=== PATIENT | male | born 1995 | race Two or more races ===

== ENCOUNTER 2017-09-05 18:13 | Emergency (ER) | payer OTHER ==
[2017-09-05] MEDS ORDERED: NS 1,000 ML IV ONE ×2 (18:51)
[2017-09-05] MEDS ORDERED: ONDANSETRON 4 MG/2 ML VIAL IVP ONE (18:51)
--- NOTE | 2017-09-05 18:53 | EDPHY ---
H & P Stated Complaint: n/v Time Seen by Provider: 09/05/17 18:49 HPI/ROS: CHIEF COMPLAINT: Nausea vomiting HISTORY OF PRESENT ILLNESS: The patient is a 21-year-old man who comes to the emergency department complaining of 2 episodes of vomiting yesterday and 1 this morning. He states that he is now feeling better. No abdominal pain. No diarrhea. No fever. No blood in his vomit. No sick contacts. No significant past medical history. 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 REVIEW OF SYSTEMS: Constitutional: denies: chills, fever, recent illness, recent injury EENTM: denies: blurred vision, double vision, nose congestion Respiratory: denies: cough, shortness of breath Cardiac: denies: chest pain, irregular heart rate, lightheadedness, palpitations Gastrointestinal/Abdominal: See HPI Genitourinary: denies: dysuria, frequency, hematuria, pain Musculoskeletal: denies: joint pain, muscle pain Skin: denies: lesions, rash, jaundice, bruising Neurological: denies: headache, numbness, paresthesia, tingling, dizziness, weakness Hematologic/Lymphatic: denies: blood clots, easy bleeding, easy bruising Immunologic/allergic: denies: HIV/AIDS, transplant EXAM: GENERAL: Well-appearing, well-nourished and in no acute distress. HEAD: Atraumatic, normocephalic. EYES: Pupils equal round and reactive to light, extraocular movements intact, sclera anicteric, conjunctiva are normal. ENT: TMs normal, nares patent, oropharynx clear without exudates. Moist mucous membranes. NECK: Normal range of motion, supple without lymphadenopathy or JVD. LUNGS: Breath sounds clear to auscultation bilaterally and equal. No wheezes rales or rhonchi. HEART: Regular rate and rhythm without murmurs, rubs or gallops. ABDOMEN: Soft, nontender, normoactive bowel sounds. No guarding, no rebound. No masses appreciated. BACK: No CVA tenderness, no spinal tenderness, step-offs or deformities EXTREMITIES: Normal range of motion, no pitting or edema. No clubbing or cyanosis. NEUROLOGICAL: Cranial nerves II through XII grossly intact. Normal speech, normal gait. 5/5 strength, normal movement in all extremities, normal sensation PSYCH: Normal mood, normal affect. SKIN: Warm, dry, normal turgor, no visible rashes or lesions. Source: Patient Exam Limitations: No limitations - Personal History Current Tetanus/Diphtheria Vaccine: Yes Current Tetanus Diphtheria and Acellular Pertussis (TDAP): Unsure - Medical/Surgical History Hx Asthma: No Hx Chronic Respiratory Disease: No Hx Diabetes: No Hx Cardiac Disease: No Hx Renal Disease: No Hx Cirrhosis: No Hx Alcoholism: No Hx HIV/AIDS: No Hx Splenectomy or Spleen Trauma: No Other PMH: denies - Family History Significant Family History: No pertinent family hx - Social History Smoking Status: Current every day smoker Alcohol Use: Sober Drug Use: None Constitutional: Initial Vital Signs Temperature (C) 36.9 C 09/05/17 18:15 Heart Rate 93 09/05/17 18:15 Respiratory Rate 18 09/05/17 18:15 Blood Pressure 122/72 H 09/05/17 18:15 O2 Sat (%) 94 09/05/17 18:15 O2 Delivery Mode Room Air Allergies/Adverse Reactions: No Known Allergies Allergy (Unverified 09/05/17 18:15) Home Medications: Medication Instructions Recorded Ondansetron Odt [Zofran Odt 4 mg 4 mg PO Q4 PRN #10 tab 09/05/17 (RX)] Medical Decision Making ED Course/Re-evaluation: 7:45 p.m. we discussed the lab results which are reassuring. The patient's abdominal exam remains benign. He is asking to go pee. He is no longer nauseous. Patient continues to feel well and is eager to go home. I will prescribe him Zofran. He is well-hydrated. Differential Diagnosis: Partial list of the Differential diagnosis considered include but were not limited to; gastritis, food poisoning, dehydration and although unlikely based on the history and physical exam, I also considered diarrhea, obstruction, ischemia, appendicitis, biliary disease, peptic ulcer disease. I discussed these differential diagnoses and the plan with the patient as well as the usual and expected course. The patient understands that the diagnosis is provisional and that in medicine we are not always correct and that further workup is often warranted. Usual and customary warnings were given. All of the patient's questions were answered. The patient was instructed to return to the emergency department should the symptoms at all worsen or return, otherwise to followup with the physician as we discussed. - Data Points Laboratory Results: Laboratory Results 09/05/17 18:44 09/05/17 18:44 09/05/17 09/05/17 18:44 18:44 WBC 7.00 10^3/uL 10^3/uL (3.80-9.50) RBC 4.82 10^6/uL 10^6/uL (4.40-6.38) Hgb 14.5 g/dL g/dL (13.7-17.5) Hct 42.7 % % (40.0-51.0) MCV 88.6 fL fL (81.5-99.8) MCH 30.1 pg pg (27.9-34.1) MCHC 34.0 g/dL g/dL (32.4-36.7) RDW 12.7 % % (11.5-15.2) Plt Count 176 10^3/uL 10^3/uL (150-400) MPV 10.7 fL fL (8.7-11.7) Neut % (Auto) 68.3 % % (39.3-74.2) Lymph % (Auto) 23.6 % % (15.0-45.0) [place] % (Auto) 5.1 % % (4.5-13.0) Eos % (Auto) 2.1 % % (0.6-7.6) Baso % (Auto) 0.3 % % (0.3-1.7) Nucleat RBC Rel Count 0.0 % % (0.0-0.2) Absolute Neuts (auto) 4.78 10^3/uL 10^3/uL (1.70-6.50) Absolute Lymphs (auto) 1.65 10^3/uL 10^3/uL (1.00-3.00) Absolute Monos (auto) 0.36 10^3/uL 10^3/uL (0.30-0.80) Absolute Eos (auto) 0.15 10^3/uL 10^3/uL (0.03-0.40) Absolute Basos (auto) 0.02 10^3/uL 10^3/uL (0.02-0.10) Absolute Nucleated RBC 0.00 10^3/uL 10^3/uL (0-0.01) Immature Gran % 0.6 % % (0.0-1.1) Immature Gran # 0.04 10^3/uL 10^3/uL (0.00-0.10) Sodium 142 mEq/L mEq/L (135-145) Potassium 4.0 mEq/L mEq/L (3.3-5.0) Chloride 107 mEq/L mEq/L (97-110) Carbon Dioxide 25 mEq/l mEq/l (22-31) Anion Gap 10 mEq/L mEq/L (8-16) BUN 13 mg/dL mg/dL (7-23) Creatinine 0.8 mg/dL mg/dL (0.7-1.3) Estimated GFR > 60 Glucose 128 mg/dL H mg/dL (70-100) Calcium 9.4 mg/dL mg/dL (8.5-10.4) Medications Given: Discontinued Medications Sodium Chloride (Ns) 1,000 mls @ 0 mls/hr IV EDNOW ONE; Wide Open PRN Reason: Protocol Stop: 09/05/17 18:52 Last Admin: 09/05/17 19:06 Dose: 1,000 mls Sodium Chloride (Ns) 1,000 mls @ 0 mls/hr IV EDNOW ONE; Wide Open PRN Reason: Protocol Stop: 09/05/17 18:52 Last Admin: 09/05/17 19:05 Dose: 1,000 mls Ondansetron HCl (Zofran) 4 mg IVP EDNOW ONE Stop: 09/05/17 18:52 Last Admin: 09/05/17 19:04 Dose: 4 mg Ondansetron HCl (Zofran Odt 4 Mg Prepack#2) 1 btl TAKEHOME EDNOW ONE Stop: 09/05/17 19:49 Last Admin: 09/05/17 20:03 Dose: 1 btl Departure - Departure Disposition: Home, Routine, Self-Care Clinical Impression: Dehydration Vomiting Qualifiers: Vomiting type: unspecified Vomiting Intractability: non-intractable Nausea presence: without nausea Qualified Code(s): R11.11 - Vomiting without nausea Condition: Fair Instructions: Ondansetron (By mouth), Acute Nausea and Vomiting (ED) Referrals: NONE *PRIMARY CARE P,. [Primary Care Provider] - As per Instructions Pedro Jaramillo MD [[facility] [place]] - 2-3 days, if not improved Prescriptions: Ondansetron Odt [Zofran Odt 4 mg (RX)] 4 mg PO Q4 PRN #10 tab PRN Reason: Nausea & Vomiting
[2017-09-05 18:58] LABS: PLATELET COUNT 176 10^3/uL (150-400)
[2017-09-05] MEDS ORDERED: ONDANSETRON 4MG PREPACK#2 BTL TAKEHOME ONE (19:48)
[2017-09-05 20:07] VITALS: BP 131/75
== END 2017-09-05 20:07 | disposition home or self-care (01) ==
DX: E86.9 Volume depletion, unspecified (principal); F17.200 Nicotine dependence, unspecified, uncomplicated
CPT/HCPCS: 96374; J2405

== ENCOUNTER 2018-04-24 04:07 | Emergency (ER) | payer OTHER ==
[2018-04-24 04:14] VITALS: BP 135/88
--- NOTE | 2018-04-24 04:18 | EDPHY ---
H & P Stated Complaint: possibe CO exposure from the snf, needs med clear Time Seen by Provider: 04/24/18 04:08 HPI/ROS: HPI The patient presents with a headache yesterday which has now completely resolved. 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 He does occasionally have headaches. He took ibuprofen for this and felt much better. He does not have any current headache, nausea, vomiting, dizziness, shortness of breath and feels completely fine. There was a natural gas leak from a boiler which was discovered today. Because of this, snf nurse was concerned that the patient's headache was due to exposure and he is brought in for evaluation here. REVIEW OF SYSTEMS 10 systems were reviewed and negative with the exception of the elements mentioned in the history of present illness. PMHx: Healthy Soc Hx: Currently incarcerated PHYSICAL General Appearance: Alert, no distress Eyes: Pupils equal and round no pallor or injection ENT, Mouth: Mucous membranes moist Respiratory: There are no retractions, lungs are clear to auscultation Cardiovascular: Regular rate and rhythm Gastrointestinal: Abdomen is soft and non-tender, no masses, bowel sounds normal Neurological: A&O, moves all extremities Skin: Warm and dry, no rashes Musculoskeletal: Neck is supple Extremities: symmetrical, full range of motion Psychiatric: Patient is oriented X 3, there is no agitation Source: Patient Exam Limitations: No limitations - Personal History Current Tetanus/Diphtheria Vaccine: Yes Current Tetanus Diphtheria and Acellular Pertussis (TDAP): Yes - Medical/Surgical History Hx Asthma: No Hx Chronic Respiratory Disease: No Hx Diabetes: No Hx Cardiac Disease: No Hx Renal Disease: No Hx Cirrhosis: No Hx Alcoholism: No Hx HIV/AIDS: No Hx Splenectomy or Spleen Trauma: No Other PMH: denies - Social History Smoking Status: Former smoker Constitutional: Initial Vital Signs Temperature (C) 36.6 C 04/24/18 04:10 Heart Rate 66 04/24/18 04:10 Respiratory Rate 16 04/24/18 04:10 Blood Pressure 135/88 H 04/24/18 04:10 O2 Sat (%) 98 04/24/18 04:10 O2 Delivery Mode Room Air Allergies/Adverse Reactions: No Known Allergies Allergy (Unverified 04/24/18 04:10) Home Medications: Medication Instructions Recorded Ondansetron Odt [Zofran Odt 4 mg 4 mg PO Q4 PRN #10 tab 09/05/17 (RX)] Medical Decision Making Differential Diagnosis: 22-year-old incarcerated male with headache yesterday in the setting of natural gas exposure due to 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 All symptoms are completely gone and patient has no complaints currently. I consulted with the snf nurse [place], no carbon monoxide was detected there. I explained that because the patient is asymptomatic, no further testing or treatment is needed. She is comfortable accepting the patient back to snf. The patient can be discharged from the emergency department. Departure - Departure Disposition: Home, Routine, Self-Care Clinical Impression: Medical clearance for incarceration, Natural gas exposure Condition: Good Instructions: Body Substance Exposure (ED) Additional Instructions: You are medically clear for snf. You were exposed to natural gas which can cause some headaches, however does not have any damaging affects. You do not need to do any special treatments. You can return to your usual activities. Referrals: NONE *PRIMARY CARE P,. [Primary Care Provider] - As per Instructions
== END 2018-04-24 04:22 | disposition home or self-care (01) ==
DX: R51 Headache (principal); Z77.098 Contact with and (suspected) exposure to other hazardous, chiefly nonmedicinal, chemicals